=== PATIENT | female | born 1955 | race Caucasian/White ===

== ENCOUNTER → 2019-09-18 | Outpatient (CLI) | payer MEDICARE, OTHER ==
[~2019-09-18] MED LIST: ALLO100 PO; CHOL10002 PO; CITA20 PO; ESTR2 PO; FISH1000 PO; POTCIT5 PO; TRIHYD253A PO; VITAMIN B122500 MC1 PO
[2019-09-18 18:12] LABS: Free Thyroxine 1.15 ng/dL (0.70-1.60)
[2019-09-18 18:17] LABS: Thyroid Stimulating Hormone 1.72 uIU/mL (0.360-4.800)
== END | disposition home or self-care (01) ==
LOC: LAB 16:10 → LAB SHORT 16:10
PROVIDERS: Hospitalist
DX: E03.9 Hypothyroidism, unspecified (principal)
CPT/HCPCS: 84439; 84443

== ENCOUNTER 2021-02-16 10:28 | Day surgery (SDC) | payer MEDICARE, OTHER ==
[~2021-02-16] VITALS: Ht 170.2 cm; Wt 64.9 kg
[2021-02-16] MEDS ORDERED: EUTHYROX100 MCG PO (10:52)
[2021-02-16] MEDS ORDERED: ATOR10 PO (10:52)
[2021-02-16] MEDS ORDERED: MYRBETRIQ25 MG PO (10:52)
[2021-02-16] MEDS ORDERED: MACRODANTIN PO (10:53)
== END 2021-02-16 12:31 | disposition home or self-care (01) ==
LOC: ORSCSDS 10:28
PROVIDERS: Internal Medicine Gastroenterology
PROC: 0DBH8ZX Excision of Cecum, Via Natural or Artificial Opening Endoscopic, Diagnostic (ICD-10-PCS; principal; 2021-02-16 11:45)
PROC: 0DBL8ZX Excision of Transverse Colon, Via Natural or Artificial Opening Endoscopic, Diagnostic (ICD-10-PCS; principal; 2021-02-16 11:45)
PROC: 0DBK8ZX Excision of Ascending Colon, Via Natural or Artificial Opening Endoscopic, Diagnostic (ICD-10-PCS; principal; 2021-02-16 11:45)
DX: Z12.11 Encounter for screening for malignant neoplasm of colon (principal); Z86.010 Personal history of colon polyps; D12.0 Benign neoplasm of cecum; D12.2 Benign neoplasm of ascending colon; D12.3 Benign neoplasm of transverse colon; K64.8 Other hemorrhoids; K57.30 Diverticulosis of large intestine without perforation or abscess without bleeding; Z83.71 Family history of colonic polyps; Z79.899 Other long term (current) drug therapy
CPT/HCPCS: 88305; J2704; J7120

== ENCOUNTER 2024-03-03 10:38 | Day surgery (SDC) | payer MEDICARE, OTHER ==
[~2024-03-03] VITALS: Ht 167.6 cm; Wt 67.6 kg
[~2024-03-03 10:38] MED LIST changes: +ATOR10 PO; +EUTHYROX100 MCG PO; +Lactated Ringer's 1,000 ML IV ONE; +MACRODANTIN PO; +MYRBETRIQ25 MG PO; +propofoL 50 ML IV ONE
[2024-03-03] MEDS ORDERED: GABA100 (11:22)
[2024-03-03] MEDS ORDERED: BIOTIN PLUS 5,1 EACH (11:22)
[2024-03-03] MEDS ORDERED: Lisinopril2.5 MG (11:22)
[2024-03-03] MEDS ORDERED: ESTRADIOL42.5 GM (11:22)
[2024-03-03] MEDS ORDERED: Acerola C500 MG (11:23)
[2024-03-03] MEDS ORDERED: HIPREX1 G1 (11:23)
[2024-03-03] MEDS ORDERED: Lactated Ringer's 1,000 ML IV ONE (12:02)
[2024-03-03 14:32] VITALS: BP 123/96
== END 2024-03-03 13:34 | disposition home or self-care (01) ==
LOC: ORSCSDS 10:38
PROVIDERS: Internal Medicine Gastroenterology
PROC: 0DBK8ZX Excision of Ascending Colon, Via Natural or Artificial Opening Endoscopic, Diagnostic (ICD-10-PCS; principal; 2024-03-03 11:45)
DX: Z12.11 Encounter for screening for malignant neoplasm of colon (principal); Z86.010 Personal history of colon polyps; K63.5 Polyp of colon; Z80.0 Family history of malignant neoplasm of digestive organs; Z79.899 Other long term (current) drug therapy
CPT/HCPCS: 88305; J2704; J7120

== ENCOUNTER → 2024-09-08 | Outpatient (CLI) | payer MEDICARE, OTHER ==
[~2024-09-08] MED LIST changes: +Acerola C500 MG; +BIOTIN PLUS 5,1 EACH; +ESTRADIOL42.5 GM; +GABA100; +HIPREX1 G1; -Lactated Ringer's 1,000 ML IV ONE; +Lisinopril2.5 MG; -propofoL 50 ML IV ONE
[2024-09-08 14:41] LABS: Anion Gap 8 mmol/L (3-11); Blood Urea Nitrogen 19 mg/dL (8-24); Bun/Creatinine Ratio 29.6 (12.0-20.0); CHOL/HDL RATIO 2.1; CO2, Blood 28 mmol/L (21-32); Calcium, Blood 9.6 mg/dL (8.5-10.1); Chloride, Blood 109 mmol/L (98-108); Cholesterol 165 mg/dL (50-200); Creatinine, Blood 0.64 mg/dL (0.40-1.00); Free Thyroxine 1.53 ng/dL (0.70-1.60); Glomerular Filtration Rate 95 (60-); Glucose, Blood 93 mg/dL (70-99); HDL Cholesterol 78 mg/dL (>39); Low Density Lipoprotein Chol 77 mg/dL (0-110); Potassium, Blood 4.5 mmol/L (3.5-5.5); Sodium, Blood 140 mmol/L (136-145); Thyroid Stimulating Hormone 0.655 uIU/mL (0.360-4.800); Triglycerides 49 mg/dL (30-160); Very Low Density Lipoprot Chol 9 mg/dL (6-32)
[2024-09-10 22:27] LABS: ANTINUCLEAR AB (ANA),HEP-2,IGG <1:80 (<1:80)
== END ==
LOC: LAB SHORT 13:22 → LAB 13:22
PROVIDERS: Hospitalist
DX: E03.9 Hypothyroidism, unspecified (principal); E78.00 Pure hypercholesterolemia, unspecified; I12.9 Hypertensive chronic kidney disease with stage 1 through stage 4 chronic kidney disease, or unspecified chronic kidney disease; M25.50 Pain in unspecified joint
CPT/HCPCS: 80048; 80061; 84439; 84443; 85651; 86039; 86140; 86430

== ENCOUNTER → 2024-10-28 | Outpatient (CLI) | payer MEDICARE, OTHER ==
[2024-10-28 18:50] LABS: BASOPHILS ABSOLUTE AUTO 0.06 K/mm3 (0.00-0.23); BASOPHILS PERCENT AUTO 1 % (0-2); EOSINOPHILS ABSOLUTE AUTO 0.12 K/mm3 (0.00-0.68); EOSINOPHILS PERCENT AUTO 2 % (0-6); Hematocrit 34.2 % (33.0-51.0); Hemoglobin 10.5 g/dL (11.5-16.0); IMMATURE GRAN ABSOLUTE AUTO 0.03 K/mm3 (0.00-0.10); IMMATURE GRAN PERCENT AUTO 0 % (0-1); LYMPHOCYTES ABSOLUTE AUTO 1.59 K/mm3 (0.84-5.20); LYMPHOCYTES PERCENT AUTO 22 % (21-46); MONOCYTES ABSOLUTE AUTO 0.61 K/mm3 (0.16-1.47); MONOCYTES PERCENT AUTO 8 % (4-13); Mean Corpuscular HGB 27.8 pg (26.0-34.0); Mean Corpuscular HGB Conc 30.7 g/dL (31.5-36.5); Mean Corpuscular Volume 91 fL (80-100); Mean Platelet Volume 10.1 fL (9.1-12.4); NEUTROPHILS PERCENT AUTO 67 % (41-73); Platelet Count 511 K/mm3 (150-400); RDW Coefficient Variation 16.2 % (11.7-14.2); RDW Standard Deviation 53.1 fL (35.1-46.3); Red Blood Cell Count 3.78 M/mm3 (3.80-5.20); White Blood Cell Count 7.31 K/mm3 (4.00-11.30)
== END ==
LOC: LAB SHORT 17:25 → LAB 17:25
PROVIDERS: Hospitalist
DX: M35.3 Polymyalgia rheumatica (principal)
CPT/HCPCS: 85025